=== PATIENT | female | born 1995 | race Caucasian/White ===

== ENCOUNTER 2017-10-20 09:53 | Inpatient (IN) | payer OTHER ==
--- OUTSIDE RECORDS SUMMARY | 2017-10-20 09:56 | XMS REPORT | Summary of Care ---
:1995 Author Organization [facility] Address [address] [place] [address]- Encounter HQ Candicentr_maury(MINOR) [id number] Date(s): 01/11/17 - 01/11/17 [facility] [address] [place] [address]- [phone] Discharge Diagnosis: Hemorrhage in early Discharge Disposition: Home or Self Care Attending Physician: Marti Titus MD Vital Signs Most recent to oldest [Reference Range]: 1 2 Height 152.4 cm (01/11/17 12:42 PM) Temperature Oral [96.4-99.1 DegF] 98.2 DegF 98 DegF (01/11/17 7:23 PM) (01/11/17 12:42 PM) Blood Pressure [90-140/60-90 mmHg] 122/65 mmHg 113/69 mmHg (01/11/17 7:23 PM) (01/11/17 12:42 PM) Respiratory Rate [14-20 BRMIN] 17 BRMIN 16 BRMIN (01/11/17 7:23 PM) (01/11/17 12:42 PM) Peripheral Pulse Rate [60-100 bpm] 76 bpm 81 bpm (01/11/17 7:23 PM) (01/11/17 12:42 PM) Weight 49.091 kg (01/11/17 12:42 PM) Body Mass Index 21.14 m2 (01/11/17 12:42 PM) Problem List No data available for this section Allergies, Adverse Reactions, Alerts Substance Reaction Severity Status NKDA Active Medications No data available for this section Results BLOOD BANK RESULTS Most recent to oldest [Reference Range]: 1 ABO/Rh O POS *Unknown* (01/11/17 2:06 PM) ELECTROLYTES Most recent to oldest [Reference Range]: 1 Sodium Lvl [135-145 mEq/L] 139 mEq/L (01/11/17 2:06 PM) Potassium Lvl [3.5-5.1 mEq/L] 4.0 mEq/L (01/11/17 2:06 PM) Chloride Lvl [95-109 mEq/L] 106 mEq/L (01/11/17 2:06 PM) CO2 [24-32 mEq/L] 27 mEq/L (01/11/17 2:06 PM) AGAP [10.0-20.0 mEq/L] 10.0 mEq/L (01/11/17 2:06 PM) CHEM PANEL Most recent to oldest [Reference Range]: 1 Creatinine Lvl [0.50-1.40 mg/dL] 0.76 mg/dL (01/11/17 2:06 PM) eGFR 113 mL/min/1.73m2 1 *NA* (01/11/17 2:06 PM) BUN [7-22 mg/dL] 13 mg/dL (01/11/17 2:06 PM) B/C Ratio [6-25] 17 (01/11/17 2:06 PM) Glucose Lvl [70-99 mg/dL] 86 mg/dL (01/11/17 2:06 PM) Total Protein [6.4-8.4 g/dL] 8.0 g/dL (01/11/17 2:06 PM) Albumin Lvl [3.5-5.0 g/dL] 4.0 g/dL (01/11/17 2:06 PM) Globulin [2.7-4.2 g/dL] 4.0 g/dL (01/11/17 2:06 PM) A/G Ratio [0.7-1.6] 1.0 (01/11/17 2:06 PM) Calcium Lvl [8.5-10.5 mg/dL] 9.1 mg/dL (01/11/17 2:06 PM) ALT [0-65 unit/L] 23 unit/L (01/11/17 2:06 PM) AST [0-37 unit/L] 12 unit/L (01/11/17 2:06 PM) Alk Phos [39-136 unit/L] 63 unit/L (01/11/17 2:06 PM) Bili Total [0.2-1.3 mg/dL] 0.2 mg/dL (01/11/17 2:06 PM) 1Result Comment: The eGFR is calculated using the CKD-EPI formula. In most young , healthy individualsthe eGFR will be >90 mL/min/1.73m2. The eGFR declines with age. An eGFR of 60-89 may be normal in some populations, particularly the elderly, for whom the CKD-EPI formula has not been extensively validated. Use of the eGFR is not recommended in the following populations: Individuals with unstable creatinine concentrations, including patients and those with serious co-morbid conditions. Patients with extremes in muscle mass or diet. The data above are obtained from the National Kidney Disease Education Program ( NKDEP) which additionally recommends that when the eGFR is used in patients with extremes of body mass index for purposesof drug dosing, the eGFR should be multiplied by the estimated BMI.ENDOCRINOLOGY Most recent to oldest [Reference Range]: 1 S Preg [Negative] Positive *NA* (01/11/17 2:06 PM) hCG Tot 28 mIU/mL *NA* (01/11/17 2:06 PM) URINE CHEM Most recent to oldest [Reference Range]: 1 U Preg [Negative] Negative (01/11/17 2:25 PM) URINE AND STOOL Most recent to oldest [Reference Range]: 1 UA Turbidity [Clear] Slight *ABN* (01/11/17 2:25 PM) UA Color [Yellow] Yellow *NA* (01/11/17 2:25 PM) UA pH [5.0-8.0] 5.0 (01/11/17 2:25 PM) UA Spec Grav [<=1.030] 1.021 (01/11/17 2:25 PM) UA Glucose [Negative mg/dL] Negative mg/dL *NA* (01/11/17 2:25 PM) UA Blood [Negative] Large *ABN* (01/11/17 2:25 PM) UA Ketones [Negative mg/dL] Negative mg/dL *NA* (01/11/17 2:25 PM) UA Protein [Negative mg/dL] Negative mg/dL (01/11/17 2:25 PM) UA Urobilinogen [0.1-1.0 mg/dL] <=1.0 mg/dL *NA* (01/11/17 2:25 PM) UA Bili [Negative] Negative *NA* (01/11/17 2:25 PM) UA Leuk Est [Negative] Negative (01/11/17 2:25 PM) UA Nitrite [Negative] Positive *ABN* (01/11/17 2:25 PM) UA WBC [0-5 /HPF] 3 /HPF (01/11/17 2:25 PM) UA RBC [0-2 /HPF] 28 /HPF *HI* (01/11/17 2:25 PM) UA Sq Epi [Few /LPF] Few /LPF *NA* (01/11/17 2:25 PM) UA Mucus [None Seen /LPF] Few /LPF *NA* (01/11/17 2:25 PM) HEMATOLOGY Most recent to oldest [Reference Range]: 1 WBC [3.7-10.4 K/CMM] 5.2 K/CMM (01/11/17 2:06 PM) RBC [4.20-5.40 M/CMM] 4.62 M/CMM (01/11/17 2:06 PM) Hgb [12.0-16.0 g/dL] 12.7 g/dL (01/11/17 2:06 PM) Hct [36.0-48.0 %] 37.6 % (01/11/17 2:06 PM) MCV [80.0-98.0 fL] 81.3 fL (01/11/17 2:06 PM) MCH [27.0-31.0 pg] 27.5 pg (01/11/17 2:06 PM) MCHC [32.0-36.0 g/dL] 33.9 g/dL (01/11/17 2:06 PM) RDW [11.5-14.5 %] 14.1 % (01/11/17 2:06 PM) Platelet [133-450 K/CMM] 216 K/CMM (01/11/17 2:06 PM) MPV [7.4-10.4 fL] 9.9 fL (01/11/17 2:06 PM) Segs [45.0-75.0 %] 47.9 % (01/11/17 2:06 PM) Lymphocytes [20.0-40.0 %] 37.8 % (01/11/17 2:06 PM) Monocytes [2.0-12.0 %] 8.1 % (01/11/17 2:06 PM) Eosinophils [0.0-4.0 %] 5.4 % *HI* (01/11/17 2:06 PM) Basophils [0.0-1.0 %] 0.8 % (01/11/17 2:06 PM) Segs-Bands # [1.5-8.1 K/CMM] 2.5 K/CMM (01/11/17 2:06 PM) Lymphocytes # [1.0-5.5 K/CMM] 2.0 K/CMM (01/11/17 2:06 PM) Monocytes # [0.0-0.8 K/CMM] 0.4 K/CMM (01/11/17 2:06 PM) Eosinophils # [0.0-0.5 K/CMM] 0.3 K/CMM (01/11/17 2:06 PM) Immunizations No data available for this section Procedures No data available for this section Social History Social History Type Response Smoking Status Never smoker; Ready to change: No; Concerns about tobacco use in household: No; Exposure to Tobacco Smoke None; Cigarette Smoking Last 365 Days No; Reg Smoking Cessation Counseling No Assessment and Plan No data available for this section
--- OUTSIDE RECORDS SUMMARY | 2017-10-20 09:56 | XMS REPORT | Summary of Care ---
:1995 Author Organization [facility] Address [address] [place] [address]- Encounter HQ Candicentr_maury(FIN) [id number] Date(s): 11/15/15 - 11/15/15 [facility] [address] [place] [address]- [phone] Discharge Diagnosis: Abdominal pain Discharge Disposition: Home or Self Care Attending Physician: Ryne Rasmussen DO Vital Signs Most recent to oldest [Reference Range]: 1 2 Height 154.94 cm (11/15/15 4:00 PM) Temperature Oral [96.4-99.1 DegF] 98.3 DegF (11/15/15 4:00 PM) Blood Pressure [90-140/60-90 mmHg] 117/83 mmHg 113/74 mmHg (11/15/15 6:27 PM) (11/15/15 4:00 PM) Respiratory Rate [14-20 BRMIN] 20 BRMIN 20 BRMIN (11/15/15 6:27 PM) (11/15/15 4:00 PM) Peripheral Pulse Rate [60-100 bpm] 62 bpm 66 bpm (11/15/15 6:27 PM) (11/15/15 4:00 PM) Weight 52.273 kg (11/15/15 4:00 PM) Body Mass Index 21.77 m2 (11/15/15 4:00 PM) Problem List No data available for this section Allergies, Adverse Reactions, Alerts Substance Reaction Severity Status NKDA Active Medications dicyclomine 10 mg oral capsule 10 mg=1 cap, PO, QID, PRN abdominal pain, # 28 cap, 0 Refill(s) Start Date: 11/15/15 Status: OrderedSaline Flush 0.9% 10 mL, Route: IVP, Drug Form: INJ, Dosing Weight 52.273, kg, PRN, PRN Line Flush , Start date: 11/15/15 17:01:00 CDT, Duration: 30 day, Stop date: 12/15/15 17:00 :00 CDT Notes: (Same as: BD Posiflush) Start Date: 11/15/15 Stop Date: 11/15/15 Status: Discontinued Results ELECTROLYTES Most recent to oldest [Reference Range]: 1 Sodium Lvl [135-145 mEq/L] 139 mEq/L (11/15/15 5:04 PM) Potassium Lvl [3.5-5.1 mEq/L] 3.6 mEq/L (11/15/15 5:04 PM) Chloride Lvl [95-109 mEq/L] 108 mEq/L (11/15/15 5:04 PM) CO2 [24-32 mEq/L] 25 mEq/L (11/15/15 5:04 PM) AGAP [10.0-20.0 mEq/L] 9.6 mEq/L *LOW* (11/15/15 5:04 PM) CHEM PANEL Most recent to oldest [Reference Range]: 1 Creatinine Lvl [0.50-1.40 mg/dL] 0.77 mg/dL (11/15/15 5:04 PM) eGFR 110 mL/min/1.73m2 1 *NA* (11/15/15 5:04 PM) BUN [7-22 mg/dL] 11 mg/dL (11/15/15 5:04 PM) B/C Ratio [6-25] 14 (11/15/15 5:04 PM) Glucose Lvl [70-99 mg/dL] 92 mg/dL (11/15/15 5:04 PM) Total Protein [6.4-8.4 g/dL] 7.1 g/dL (11/15/15 5:04 PM) Albumin Lvl [3.5-5.0 g/dL] 3.6 g/dL (11/15/15 5:04 PM) Globulin [2.7-4.2 g/dL] 3.5 g/dL (11/15/15 5:04 PM) A/G Ratio [0.7-1.6] 1.0 (11/15/15 5:04 PM) Calcium Lvl [8.5-10.5 mg/dL] 8.5 mg/dL (11/15/15 5:04 PM) Magnesium Lvl [1.8-2.4 mg/dL] 1.9 mg/dL (11/15/15 5:04 PM) ALT [0-65 unit/L] 20 unit/L (11/15/15 5:04 PM) AST [0-37 unit/L] 12 unit/L (11/15/15 5:04 PM) Alk Phos [39-136 unit/L] 68 unit/L (11/15/15 5:04 PM) Bili Total [0.2-1.3 mg/dL] 0.3 mg/dL (11/15/15 5:04 PM) Lipase Lvl [73-393 unit/L] 156 unit/L (11/15/15 5:04 PM) 1Result Comment: The eGFR is calculated [...] oldest [Reference Range]: 1 S Preg [Negative] Negative *NA* (11/15/15 5:04 PM) URINE CHEM Most recent to oldest [Reference Range]: 1 U Preg [Negative] Negative (11/15/15 4:40 PM) URINE AND STOOL Most recent to oldest [Reference Range]: 1 UA Turbidity [Clear] Slight *ABN* (11/15/15 4:40 PM) UA Color [Yellow] Yellow *NA* (11/15/15 4:40 PM) UA pH [5.0-8.0] 5.0 (11/15/15 4:40 PM) UA Spec Grav [<=1.030] 1.024 (11/15/15 4:40 PM) UA Glucose [Negative mg/dL] Negative mg/dL *NA* (11/15/15 4:40 PM) UA Blood [Negative] Large *ABN* (11/15/15 4:40 PM) UA Ketones [Negative mg/dL] Negative mg/dL *NA* (11/15/15 4:40 PM) UA Protein [Negative mg/dL] Negative mg/dL (11/15/15 4:40 PM) UA Urobilinogen [0.1-1.0 mg/dL] <=1.0 mg/dL *NA* (11/15/15 4:40 PM) UA Bili [Negative] Negative *NA* (11/15/15 4:40 PM) UA Leuk Est [Negative] Negative (11/15/15 4:40 PM) UA Nitrite [Negative] Negative (11/15/15 4:40 PM) UA WBC [0-5 /HPF] 4 /HPF (11/15/15 4:40 PM) UA RBC [0-2 /HPF] 2 /HPF (11/15/15 4:40 PM) UA Sq Epi [Few /LPF] Many /LPF *ABN* (11/15/15 4:40 PM) UA Hyal Cast [0-2 /LPF] 1 /LPF (11/15/15 4:40 PM) UA Mucus [None Seen /LPF] Few /LPF *NA* (11/15/15 4:40 PM) HEMATOLOGY Most recent to oldest [Reference Range]: 1 WBC [3.7-10.4 K/CMM] 6.1 K/CMM (11/15/15 5:04 PM) RBC [4.20-5.40 M/CMM] 4.39 M/CMM (11/15/15 5:04 PM) Hgb [12.0-16.0 g/dL] 12.0 g/dL (11/15/15 5:04 PM) Hct [36.0-48.0 %] 35.8 % *LOW* (11/15/15 5:04 PM) MCV [80.0-98.0 fL] 81.6 fL (11/15/15 5:04 PM) MCH [27.0-31.0 pg] 27.4 pg (11/15/15 5:04 PM) MCHC [32.0-36.0 g/dL] 33.6 g/dL (11/15/15 5:04 PM) RDW [11.5-14.5 %] 13.6 % (11/15/15 5:04 PM) Platelet [133-450 K/CMM] 57 K/CMM *LOW* (11/15/15 5:04 PM) MPV [7.4-10.4 fL] 11.8 fL *HI* (11/15/15 5:04 PM) Segs [45.0-75.0 %] 20.0 % *LOW* (11/15/15 5:04 PM) Lymphocytes [20.0-40.0 %] 35.4 % (11/15/15 5:04 PM) Monocytes [2.0-12.0 %] 80.0 % *HI* (11/15/15 5:04 PM) Eosinophils [0.0-4.0 %] 9.8 % *HI* (11/15/15 5:04 PM) Basophils [0.0-1.0 %] 0.7 % (11/15/15 5:04 PM) Segs-Bands # [1.5-8.1 K/CMM] 1.2 K/CMM *LOW* (11/15/15 5:04 PM) Lymphocytes # [1.0-5.5 K/CMM] 2.2 K/CMM (11/15/15 5:04 PM) Monocytes # [0.0-0.8 K/CMM] 4.9 K/CMM *HI* (11/15/15 5:04 PM) Eosinophils # [0.0-0.5 K/CMM] 0.6 K/CMM *HI* (11/15/15 5:04 PM) RBC Morph Normal (11/15/15 5:04 PM) Plt Morph Clumped (11/15/15 5:04 PM) Immunizations No data available for this [...]
[2017-10-20] MEDS ORDERED: CARBOPROST TROME 250 MCG/ML IM PRN (10:13)
[2017-10-20] MEDS ORDERED: METHYLERGONOVINE 0.2MG/ML AMP IM PRN (10:13)
[2017-10-20] MEDS ORDERED: Ringers Lactate 1,000 ML IV PRN (10:13)
[2017-10-20] MEDS ORDERED: BUTORPHANOL 1 MG/ML INJ IV PRN (10:13)
[2017-10-20] MEDS ORDERED: PROMETHAZINE 25 MG/ML VIAL IM PRN ×2 (10:13)
[2017-10-20] MEDS ORDERED: MEPERIDINE HCL 25 MG/0.5 ML IV PRN (10:13)
[2017-10-20] MEDS ORDERED: BUTORPHANOL 1 MG/ML INJ ONE (10:20)
[2017-10-20] MEDS ORDERED: PENICILLIN G POT 5 MU/100 ML BAG IV ONE (10:30)
[2017-10-20] MEDS ORDERED: CARBOPROST TROME 250 MCG/ML IM ONE (10:30)
[2017-10-20] MEDS ORDERED: OXYTOCIN/LR 20 UNIT/1,000 ML BAG IV ONE (10:30)
[2017-10-20] MEDS ORDERED: METHYLERGONOVINE 0.2MG/ML AMP IM ONE (10:30)
[2017-10-20] MEDS ORDERED: LIDOCAINE 2% INJ, 20 mL 20 ML ONE (10:30)
[2017-10-20] MEDS ORDERED: MEPERIDINE HCL 25 MG/0.5 ML ONE (10:30)
[2017-10-20 10:58] VITALS: BMI 27.9
[2017-10-20] MEDS ORDERED: PENICILLIN G POT 5 MU/100 ML VIAL IV SCH (11:00)
[2017-10-20] MEDS ORDERED: Ringers Lactate 1,000 ML IV SCH (11:00)
[2017-10-20] MEDS ORDERED: OXYTOCIN/LR 20 UNIT/1,000 ML BAG IV SCH ×2 (11:00→12:00)
[2017-10-20 11:10] LABS: RPR Titer ND
[2017-10-20 11:13] LABS: Absolute Lymphocytes (CBC) 1.2 K/uL (0.7-4.9); Absolute Monocytes 0.7 K/uL (0.1-1.3); Absolute Neutrophil 6.6 K/uL (1.8-8.0); Basophils % 0.3 % (0-1.3); Eosinophils % 1.3 % (0-4.4); Hematocrit 30.6 % (36.0-45.0); Lymphocytes % 13.5 % (15.3-44.8); MCV 78.6 fL (80-100); MPV 10.8 fL (7.6-11.3); RBC Red Blood Cell Count 3.89 M/uL (3.86-4.86)
[2017-10-20 11:24] LABS: Glucose Level 85 mg/dL (74-106)
[2017-10-20] MEDS ORDERED: DOCUSATE NA/SENNA CONC 1 TAB PO PRN (11:40)
[2017-10-20] MEDS ORDERED: DIPHENHYDRAMINE 25 MG TAB/CAP PO PRN (11:40)
[2017-10-20] MEDS ORDERED: ACETAMINOPHEN 500 MG TAB PO PRN (11:40)
[2017-10-20] MEDS ORDERED: Oxycodone HCl/Acetaminophen 1 TAB TAB PO PRN ×2 (11:40)
[2017-10-20] MEDS ORDERED: BISACODYL 10 MG RECTAL SUPP RECT PRN (11:40)
[2017-10-20] MEDS ORDERED: IBUPROFEN 200 MG TAB PO PRN (11:40)
--- NOTE | 2017-10-20 16:26 | PN ---
The patient is now 8.5 cm, 90% effaced, vertex, 0 station. Rupture of membranes, clear fluid. Penic illin is already in. Baby looks good on the monitor. We are in the active phase at this point. AMOL/ALICIA Voice ID: [id number] Report ID: [id number]
--- NOTE | 2017-10-20 16:26 | PREOPHP ---
Date of Admission: 10/20/2017 History Of Present Illness: A 22-year-old, drop-in patient from [place], [place], 2, para 1, fir st uncomplicated. Baby is now 2 years old. The patient states that she has not seen anybo dy during the because she was trying to get insurance. Apparently has had it for several m onths, but did not know about it. In any event, she has family in this area. Dropped in earlier the last night and was sent home. Not thought to be in active labor. Returns and is in active labor, 5 cm on admission. She is rapidly progressing too now 8 cm, 100% effaced, -1 to 0 station. Membranes bulging. She has been given 1 dose of Stadol at her request. Strep status is unknown. The patient requested penicillin, which is now just about completed. Family History: Noncontributory. Allergies: SHE HAS NO ALLERGIES. Physical Examination: Basically normal. Vital Signs: All stable. Pelvic: As stated. The patient progressing very rapidly and anticipate delivery soon. Full admission talk given. We wi ll draw the drop-in labs. After delivery of course, we will offer her Tdap, which she has not had an d discussed this with the family members how they should be immunized as well. AMOL/ALICIA Voice ID: [id number]
--- NOTE | 2017-10-20 19:39 | OP ---
Surgeon: Reg Javier MD This is a 22-year-old, 2, para 1, no care, estimated to be around 39 weeks, came in from [place], [place]. 5 cm on admission. went rapidly to complete. Stadol IV 1 mg in first stage of l abor. Penicillin prophylaxis 5 million units 1 time. Second stage approximately 10 minutes or less. Spontaneous vaginal delivery of an estimated 6 pounds female. Apgars 9 and 9 or 9 and 10. Two smal l first-degree lacerations involving each labia minora, both sutured with 2-0 chromic after local inf iltration. Schultze delivery of the placenta, which was inspected and noted be intact and normal. L ess than 300 cc blood loss. The patient tolerated all procedures well. Drop-in lab has been ordered . Final Diagnoses: Term intrauterine . No care. Spontaneous vaginal delivery. Labs are pending. Tdap has also been discussed with the patient and . AMOL/ALICIA Voice ID: [id number] Report ID: [id number]
[2017-10-20 21:14] LABS: RPR (Rapid Plasma Reagin) NON-REACT (NON-REACT)
[2017-10-21] MEDS ORDERED: Tdap (Diph,Pertuss(Acell),Tet Vac) 0.5 ML SYR IMVAC ONE (11:20)
[2017-10-21 11:38] VITALS: BP 112/54; TEMP 97.4
[2017-10-23 03:21] LABS: HBsAG Nonreactive (Nonreactive)
== END 2017-10-21 13:40 | disposition home or self-care (01) | DRG 775 ==
LOC: L&D 09:53 → 2ND-WC 10:07
PROVIDERS: ADMIT Specialist; ATTEND Specialist
PROC: 10E0XZZ Delivery of Products of Conception, External Approach (ICD-10-PCS; principal; 2017-10-20)
PROC: 0HQ9XZZ Repair Perineum Skin, External Approach (ICD-10-PCS; 2017-10-20)
PROC: 10907ZC Drainage of Amniotic Fluid, Therapeutic from Products of Conception, Via Natural or Artificial Opening (ICD-10-PCS; 2017-10-20)
DX: O70.0 First degree perineal laceration during delivery (principal); Z3A.39 39 weeks gestation of pregnancy; Z37.0 Single live birth; Z23 Encounter for immunization
CPT/HCPCS: 36415; 82947; 85025; 86592; 86762; 86900; 86901; 87340; 90715; 99218; G0433; J0595; J2175; J2210; J2590

== ENCOUNTER 2022-04-01 10:13 | Emergency (ER) | payer SELFPAY ==
--- OUTSIDE RECORDS SUMMARY | 2022-04-01 10:18 | XMS REPORT | Continuity of Care Document ---
:[address] [facility] t Address [address] [place] [address] Care Team Providers Name Role Phone Pcp, Patient Does Not Have A Primary Care Physician +[id number] Silas Mehta RN Attending Clinician Unavailable UNKNOWN, ATTENDING Attending Clinician Unavailable [place] Rodriguez MD Attending Clinician [place] RODRIGUEZ Attending Clinician Unavailable Doctor Unassigned, [place] Attending Clinician Unavailable DR ANAIS WILSON Attending Clinician Unavailable DR DAVID LLOYD Attending Clinician Unavailable DR FAIZAN HUERTA Attending Clinician Unavailable DR ANAIS WILSON Admitting Clinician Unavailable DR DAVID LLOYD Admitting Clinician Unavailable DR FAIZAN HUERTA Admitting Clinician Unavailable Problems Condition Condition Condition Status Onset Resolution Last Treating Co mments Source Name Details Category Date Date Treatment Clinician Date No known No known Disease Unive rs active active ity of problems problems [facility] Allergies, Adverse Reactions, Alerts Allergy Allergy Status Severity Reaction(s) Onset Inactive Treating Comm ents Source Name Type Date Date Clinician NO KNOWN Drug Active Univers ALLERGIE Class ity of S [facility] No Known DA Active [facility] Allerg Medical [facility] [place] Social History Social Habit Start Date Stop Date Quantity Comments Source Exposure to 2021-12-23 2022-01-02 Not sure [facility]-CoV-2 00:00:00 09:20:00 [facility] (event) [place] Tobacco use and 2019-06-27 2019-06-27 Smokeless tobacco Un iversity of exposure 00:00:00 00:00:00 non-user [facility] Sex Ass[birth year] Universit y of 00:00:00 00:00:00 [facility] Smoking Status Start Date Stop Date Source Tobacco [facility] consumption [facility] Branch Never smoked tobacco [facility] Medications Ordered Filled Start Stop Current Ordering Indication Dosage Frequency Signature Comments Components Source Medication Medication Date Date Medication? Clinician (SIG) Name Name No known 2021-04 No No known Unive rs medications 0-04 medication it y of 09:44: s [place] [facility] Branch bromphenira 2021-04 Yes [id number] 5mL Take 5 mL Univers mine-pseudo 0-04 by mouth 4 it y of ephedrine-D 00:00: ([place] (BROMF[place] 00 times Medical DM) 2-30-10 daily as Bran ch mg/5 mL needed for syrup Congestion /Allergies . benzonatate 2021-04 Yes [id number] 200mg Take 2 Univers 100 mg 0-04 capsules ity of capsule 00:00: by mouth [place] 00 every 8 Medical (eight) Branch hours as needed for Cough. bromphenira 2021-04 Yes [id number] 5mL Take 5 mL Univers mine-pseudo 0-04 by mouth 4 it y of ephedrine-D 00:00: ([place] (BROMF[place] 00 times Medical DM) 2-30-10 daily as Bran ch mg/5 mL needed for syrup Congestion /Allergies . benzonatate 2021-04 Yes [id number] 200mg Take 2 Univers 100 mg 0-04 capsules ity of capsule 00:00: by mouth [place] 00 every 8 Medical (eight) Branch hours as needed for Cough. bromphenira 2021-04 Yes [id number] 5mL Take 5 mL Univers mine-pseudo 0-04 by mouth 4 it y of ephedrine-D 00:00: ([place] (BROMF[place] 00 times Medical DM) 2-30-10 daily as Bran ch mg/5 mL needed for syrup Congestion /Allergies . benzonatate 2021-04 Yes [id number] 200mg Take 2 Univers 100 mg 0-04 capsules ity of capsule 00:00: by mouth [place] 00 every 8 Medical (eight) Branch hours as needed for Cough. No known No No known Unive rs medications 3-28 medication it y of 16:04: s [address] Vital Signs Vital Name Observation Time Observation Value Comments Source Systolic blood 2022-01-02 14:25:00 126 mm[Hg] Univer sity of pressure [facility] Diastolic blood 2022-01-02 14:25:00 70 mm[Hg] Unive rsity of [facility] Heart rate 2022-01-02 14:25:00 73 /min [facility] Body temperature 2022-01-02 14:25:00 36.89 [facility] Respiratory rate 2022-01-02 14:25:00 18 /min [facility] Body height 2022-01-02 14:25:00 152.4 cm [facility] Body weight 2022-01-02 14:25:00 52.889 kg [facility] BMI 2022-01-02 14:25:00 22.77 kg/m2 [facility] Oxygen saturation in 2022-01-02 14:25:00 98 /min [facility] Arterial blood by [facility] Pulse oximetry [place] Height 2019-04-27 21:30:00 154.94 CM Weight 2019-04-27 21:30:00 45.35 KG Procedures Procedure Date / Time Performing Clinician Source Performed CONSENT/REFUSAL FOR 2022-01-02 14:19:18 Doctor Unassigned, [facility] DIAGNOSIS AND TREATMENT [place] [facility] PATIENT FINANCIAL Doctor Unassigned, [facility] RESPONSIBILITY - ALL [place] [facility] FORMS Encounters Start End Encounter Admission Attending Care Care Encounter Source Date/Time Date/Time Type Type Clinicians Facility Department ID 2022-04-01 2022-04-01 Nurse PREMA Mehta [id number] Univers 00:00:00 00:00:00 Triage Silas LEO [id number] [facility] [id number] Nabil as [id number] [place] [id number] Branch 2022-01-04 2022-01-04 Outpatient R DENNISE [facility] [id number] Univers 09:40:00 09:40:00 ATTENDING saba [facility] 2022-01-04 2022-01-04 Mauri Rodriguez IDBRIGHT [id number] Univers 00:00:00 00:00:00 (Out) [place] [facility] [id number] it y [place] 4.2.7.2.686 Nabil as ANJELICA?BLEA [id number] [address] MEDICAL OFFICE [facility] 2022-01-02 2022-01-02 [facility] [id number] Univers 09:20:00 09:40:00 Care [place] [facility] [id number] it y [place] 4.2.7.2.686 Nabil as ANJELICA?BLEA [id number] [address] MEDICAL OFFICE [facility] 2022-01-02 2022-01-02 [facility] [id number] Univers 09:20:00 09:20:00 [place] ity [facility] 2022-01-02 2022-01-02 Orders Doctor PREMA [id number] Univers 00:00:00 00:00:00 Only Unassigned, AHMET 350.1.13.10 ity of [place] [facility] 4.2.7.2.686 Nabil as [id number] [address] 2019-06-27 2019-06-27 Outpatient R DENNISE [facility] [id number] Univers 16:00:00 16:00:00 ATTENDING ity of [facility] 2019-04-27 2019-04-27 Outpatient E ANAIS WILSON [facility] [id number] [place] 21:08:00 22:25:00 Medica l [place] 2019-02-05 2019-02-05 Outpatient E GABINO [facility] [id number] [place] 09:14:00 12:23:00 DAVID Medica [facility] [place] 2019-02-02 2019-02-02 Outpatient E GABINO [facility] [id number] [place] 12:20:00 15:05:00 DAVID Medica [facility] [place] 2018-11-20 2018-11-20 Outpatient E SHEIKH [facility] [id number] [place] 08:26:00 09:40:00 WASIM Medica l [place] 2018-07-16 2018-07-16 Outpatient E ANAIS WILSON [facility] [id number] [place] 08:57:00 09:20:[address] [facility] Orders Doctor PREMA [id number] Univers 00:00:00 00:00:00 Only Unassigned, AHMET 350.1.13.10 ity [facility] [place] [facility] [id number] Nabil as [id number] [facility] 009 Branch Results Test Description Test Time Test Comments Results Result Comments Source TROPONIN I OW 2019-04-27 22:06:00 Test Item Value Reference Range Interpretation Comme nts TROPONIN I (test code = A84) <0.050 ng/mL 0.000-0.050 D-DIMER TRIAGE OW2019-04-27 21:59:00 Test Item Value Reference Range Interpretation Comments D-DIMER (test code = 101 ng/mL D-DU <=599 GDDI) D-DIMER COMMENT (test *Level to rule out code = DDCOM) DVT or PE: <235 ng/mL D-DU* [employer] 8 Panel *OW* [id number] 21:58:00 Test Item Value Reference Range Interpretation Comments GLUCOSE (test code = GGUL) 120 mg/dL 73-118 H BUN (test code = GBUN) 10 mg/dL 7-22 CREATININE (test code = GCRE) 0.6 mg/dL 0.6-1.2 CK TOTAL (test code = GCK) 62 U/L 30-190 SODIUM (test code = GNA+) 137 mmol/L 128-145 POTASSIUM (test code = GK+) 3.4 mmol/L 3.6-5.1 L CHLORIDE (test code = GCL-) 103 mmol/L 98-108 TCO2 (test code = GTC02) 22 mmol/L 18-33 CBC (INCLUDES AUTOMATED DIFFERENTIAL) *2019-04-27 21:50:00 Test Item Value Reference Range Interpretation Comments WBC (test code = WBC) 7.5 10\S\3/uL 4.5-11.0 RBC (test code = RBC) 4.51 10\S\6/uL 4.30-5.70 HGB (test code = HBG) 12.0 g/dL 12.0-15.5 HCT (test code = HCT) 38.0 % 35.0-44.0 MCV (test code = MCV) 84.3 fL 81.0-99.0 MCH (test code = MCH) 26.6 pg 27.0-31.0 L MCHC (test code = MCHC) 31.6 g/dL 32.0-36.0 L RDW (test code = RDW) 14.7 % 11.5-14.5 H PLT (test code = PLT) 226 10\S\3/uL 130-400 MPV (test code = OMPV) 9.5 fL 6.2-10.2 NEUTROP # (test code = NE#) 4.2 10\S\3/uL 1.6-8.0 LYMPH # (test code = LY#) 2.7 10\S\3/uL 1.1-3.5 MID # (test code = GMID#) 0.6 10\S\3/uL 0.0-1.1 GRA % (test code = GRA%) 56.1 % 35.0-73.0 LYMPH % (test code = GLY%) 36.2 % 20.0-55.0 MID % (test code = GMID%) 7.7 % 0.0-10.0 BETA HCG QUANTITATIVE [id number] 12:04:00 Test Item Value Reference Range Interpretation Comments BHCG QUANT (test 310.00 mIU/mL code = A17) BHCGQ (test code = QUANTITATIVE BHCG BHCQ) RESULT INTERPRETATION --- APPROXIMATE APPROXIMATE GESTATIONAL AGE HCG RANGE (WEEKS) (mIU/mL) - 0.2 - 1 5 - 50 1 - 2 50 - 500 2 - 3 100 - 5,000 3 - 4 500 - 10,000 4 - 5 1,000 - 50,000 5 - 6 10,000 - 100,000 6 - 8 15,000 - 200,000 8 - 12 10,000 - 100,000 --- U/S ENDOVAGINAL *OW*2019-02-05 11:02:47PELVIC ULTRASOUNDLocation code: [id number] HISTORY: Bleeding from vaginaComparison: 02/02/19TECHNIQUE: Transabdominal and endovaginal sonography of the pelvis was performed.FINDINGS: The uterus measures 7.6 x 3.7 x 5.6 cm. There is no visualized intrauterinegestational sac. Endometrium measures 9 mm. The cervical os is closed.The right ovary measures 3.1 x 1.2 x 1.6 cm. The left ovary measures 3.9 x1.5 x 2.0 cm. Color flow is normal bilaterally. There is no adnexal mass orfluid collection.IMPRESSION:1. Previously suspected intrauterine gestational sac is not visualized ontoday's exam. Findings are suggestive of interval spontaneous .2. No adnexal mass or fluid collection. Recommend correlat ion with beta-hCG andfollow-up ultrasound in 3-5 days, if clinically indicated. U/S <14 WEEKS *OW*2019-02-05 11:02:47PELVIC ULTRASOUNDLocation code: [id number] HISTORY: Bleeding from vaginaComparison: 02/02/19TECHNIQUE: Transabdominal and endovaginal sonography of the pelvis was performed.FINDINGS: The uterus measures 7.6 x 3.7 x 5.6 cm. There is no visualized intrauterinegestational sac. Endometrium measures 9 mm. The cervical os is closed.The right ovary measures 3.1 x 1.2 x 1.6 cm. The left ovary measures 3.9 x1.5 x 2.0 cm. Color flow is normal bilaterally. There is no adnexal mass orfluid collection.IMPRESSION:1. Previously suspected intrauterine gestational sac is not visualized ontoday's exam. Findings are suggestive of interval spontaneous .2. No adnexal mass or fluid collection. Recommend correlat ion with beta-hCG andfollow-up ultrasound in 3-5 days, if clinically indicated. URINE OW2019-02-05 10:18:00 Test Item Value Reference Range Interpretation Comments PREG UR (test code = PGU) Positive NEGATIVE BETA HCG QUANTITATIVE [id number] 16:02:00 Test Item Value Reference Range Interpretation Comments BHCG QUANT (test 1113.00 mIU/mL code = A17) BHCGQ (test code = QUANTITATIVE BHCG BHCQ) RESULT INTERPRETATION --- APPROXIMATE APPROXIMATE GESTATIONAL AGE HCG RANGE (WEEKS) (mIU/mL) - 0.2 - 1 5 - 50 1 - 2 50 - 500 2 - 3 100 - 5,000 3 - 4 500 - 10,000 4 - 5 1,000 - 50,000 5 - 6 10,000 - 100,000 6 - 8 15,000 - 200,000 8 - 12 10,000 - 100,000 --- URINALYSIS W/O MICROSCOPICOW2019-02-02 14:11:00 Test Item Value Reference Range Interpretation Comments COLOR (test code = Yellow YELLOW COLU) CLARITY (test code = Clear CLEAR CLA) GLUCOSE UR (test Negative NEGATIVE code = UA GLUCOSE) BILI UR (test code = Negative NEGATIVE BILE) KETONES UR (test Negative NEGATIVE code = RICH) SP GRAVITY (test 1.015 1.005-1.030 code = SPGR) PH UR (test code = 7.0 4.5-8.0 PH) PROTEIN UR (test Negative NEGATIVE code = PU) NITRITE UR (test Negative NEGATIVE code = NITRITE) UROBIL UR (test code 0.2 E.U./dL = GUROQ) UROBIL UR (test code UROBILINOGEN = GUROQC) REFERENCE RANGE 0.2 - 1.0 EU/dL BLOOD UR (test code 3+ NEGATIVE A = UA BLOOD) LEUK ES UR (test Negative NEGATIVE code = LEUK) U/S >14 WEEKS *OW*2019-02-02 13:32:54PELVIC AND TRANSVAGINAL ULTRASOUNDLocation code: [id number] HISTORY:, bleedingTECHNIQUE: Mult iple high resolution images were obtained through the pelvis using amultifrequency curved transducerfollowed by a transvaginal probe.FINDINGS: The uterus measures 7.6 x 4.1 x 5.5 cm. There is a small cystic area in theuterus which could represent early gestational sac measuring 3 x 4 x 4 mm whichis too early for calculation of gestational age. No pole or yolk sac.Small subchorionic hemorrhage is noted bilaterally.The right ovary measures 3.4 x 2.0 x 1.8 cm. The left ovary measures 4.1 x1.6 x 1.8 cm. Color flow is normal bilaterally. There is no adnexal mass orfluid collection.IMPRESSION:Small possible gestational sac without yolk sac or pole along with smallsubchorionic hemorrhages. Follow-up hCG and ultrasound recommended. No adnexalmasses.
[2022-04-01] MEDS ORDERED: ONDANSETRON 4 MG/2 ML VIAL ONE ×2 (10:55→13:45)
[2022-04-01] MEDS ORDERED: MORPHINE 4 MG/ML SYR ONE ×2 (10:55→12:34)
[2022-04-01 11:15] LABS: Absolute Lymphocytes (CBC) 1.7 K/uL (0.7-4.9); Lymphocytes % 19.6 % (15.3-44.8); MCV 82.1 fL (80-100); MPV 9.9 fL (7.6-11.3); RBC Red Blood Cell Count 4.76 M/uL (3.86-4.86)
[2022-04-01 11:36] LABS: Bilirubin Total 0.5 mg/dL (0.2-1.0); Potassium 3.6 mmol/L (3.5-5.1); Protein, Total 7.6 g/dL (6.4-8.2)
[2022-04-01 11:48] LABS: Urine Blood 2+ (Negative); Urine Glucose Negative (Negative); Urine Protein Negative (Negative); Urine Specific Gravity 1.015 (1.005-1.030); Urine pH 7.5 (5.0-7.0)
--- NOTE | 2022-04-01 13:30 | RAD REPORT ---
EXAM DESCRIPTION: US - Transvaginal Study Probe - 04/01/2022 12:05 pm CLINICAL HISTORY: RLQ PAIN COMPARISON: <Comparisons> TECHNIQUE: Endovaginal sonography was performed. FINDINGS: Gestational sac with pole is present filling and dilating the cervical canal. pole measures 7 weeks 6 days size but there is no cardiac activity identifiable. Endometrium in the f undal and midportion of the cervical canal is thickened up to 2.5 cm. No intrauterine hematoma. No my ometrial mass. Uterus is 10.1 x 4.7 x 5.4 cm. No blood or fluid in the cul de sac. Normal size right ovary is seen with normal stromal blood flow pattern. No right adnexal mass. Left ovary could not be clearly identified, likely obscured by bowel. No left adnexal mass. IMPRESSION: 7 week 6 day size pole with no cardiac activity identifiable. The gestational sac is in the cervical canal.
--- NOTE | 2022-04-01 14:28 | RAD REPORT ---
EXAM DESCRIPTION: CT - Abdomen Pelvis W Contrast - 04/01/2022 1:54 pm CLINICAL HISTORY: RLQ abdominal pain COMPARISON: Transvaginal Study Probe dated 04/01/2022 TECHNIQUE: Biphasic, helical CT imaging of the abdomen and pelvis was performed following 100 ml non -ionic IV contrast. Imaging was performed subsequent to the endovaginal ultrasound of the same date. Oral contrast: No. All CT scans are performed using dose optimization technique as appropriate and may include automated exposure control or mA/KV adjustment according to patient size. FINDINGS: No suspicious findings in the lung bases. The liver, spleen, and pancreas show no suspicious findings. Gallbladder and biliary tree are also wi thout suspicious finding. Symmetric renal function is seen with no hydronephrosis or suspicious renal mass. No pyelonephritis o r acute parenchymal process. Mostly contracted urinary bladder shows no suspicious finding. No adrena l abnormalities. Uterine size is normal. Fundal portion of the endometrial cavity is thickened. Cervical canal is dila callie by fluid or low-density material. This was shown on the earlier ultrasound to be a gestational sa c containing a non viable 7 week 6 day sized pole. The external os is dilated. There is additio nal fluid and/or blood in the deep portion of the vaginal vault. Both ovaries are identified and unre markable. No adnexal suspicious findings. No gastric or small bowel abnormality. Moderate stool volume is seen throughout the colon. Stool volu me is prominent in the proximal and midportion of the rectum. No wall thickening or mass. No free air or pneumatosis. No abnormal free fluid collections otherwise noted. No hernia, mass or b ulky lymphadenopathy. No suspicious bony findings. IMPRESSION: Cervical canal is dilated with open external loss and contains a gestational sac with no nviable 7 week 6 day pole as was demonstrated on the earlier ultrasound examination. Moderate stool volume distends but does not dilate the colon from distal sigmoid colon to the mid rec trace. No ovarian or adnexal abnormality. No acute finding.
--- NOTE | 2022-04-01 15:06 | EDPHYS ---
Physician Documentation [facility] Name: Katrin Mccauley Age: 26 yrs Sex: Female : 1995 Arrival Date: 04/01/2022 Time: 10:17 Bed 11 Private MD: ED Physician Eliazar Menard HPI: 04/01 12:07 This 26 yrs old Female presents to ER via Ambulatory with complaints of Abdominal Pain, en Back Pain, Rectal Pain. 12:07 26 yo F [id number] presents to ED with sudden onset of RLQ pain last night radiating to en right flank and right perirectal area. Pt reports irregular menstrual cycles. She is on control but has had multiple spontaneous abortions on control. She is concerned about possible miscarriage. +nausea, no V/D, dysuria, hematuria. 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 - Social history:: Smoking status: Patient/guardian denies using tobacco, the patient reports quitting approximately 5 years ago. ROS: 12:07 Constitutional: Negative for fever, chills, and weight loss. en 12:07 : Positive for pelvic pain, vaginal bleeding. 12:07 All other systems are negative. Exam: 12:07 Constitutional: Crying in pain, cooperative, HDS, nontoxic appearing Cardiovascular: en Regular rate and rhythm with a normal S1 and S2. No gallops, murmurs, or rubs. Normal PMI, no JVD. No pulse deficits. Respiratory: Lungs have equal breath sounds bilaterally, clear to auscultation and percussion. No rales, rhonchi or wheezes noted. No increased work of breathing, no retractions or nasal flaring. Abdomen/GI: S/ND/NABS RLQ TTP in lower pelvis and McBurneys point with guarding. No CVA TTP Vital Signs: 10:41 BP 125 / 79; Pulse 66; Resp 28; Temp 99.1(TE); Pulse Ox 98% on R/A; Weight 52.16 kg; kr3 Height 5 ft. 0 in. (152.40 cm); Pain 9/10; 14:30 BP 100 / 60; Pulse 60; Resp 18; Pulse Ox 96% ; kb3 15:15 BP 98 / 64; Pulse 61; Resp 18; Pulse Ox 100% ; kb3 10:41 Body Mass Index 22.46 (52.16 kg, 152.40 cm) kr3 MDM: 10:25 Patient medically screened. rn 12:07 Differential diagnosis: appendicitis, bowel obstruction, diverticulitis, Dysmenorrhea, en Ectopic , Irritable bowel syndrome, Menorrhagia, Mesenteric ischemia or infarction, non-specific abd pain, Ovarian Torsion, Perf. Duodenal Ulcer, Peritonitis, Pelvic Inflammatory Disease, Pyelonephritis, Tubal Ovarian Abcess, Ureterolithiasis, urinary tract infection, , miscarriage. Data reviewed: vital signs, nurses notes, lab test result(s), urinalysis, negative, UPT: negative PT UPT negative, but US tech sees sac in cervix. Will get Quant HCG and RH. , and as a result, I will pain returning. Will give more medications. 13:36 ED course: Pt with BHCG of 4. Pelvic US with nonviable 7w gestational sac and fetus en without cardiac activity. Pt with TTP at McBurney's point but pain improved after IV Morphine. Still with concern for appendicitis, so will get CT A/P now that confirmed is not viable. . 14:57 ED course: CT reviewed. Normal appendix. Nonviable in cervix c/w missed en . Will consult Ob, Dr Gutierrez, OB relationship associate. 15:02 ED course: spoke with Dr Gutierrez, Ob relationship associate. Ok to d/c pt at this time. HDS and no large en volume bleeding. Will need OB f/u and recommended Dr Javier since Dr Gutierrez is not local. No medical intervention required at this time. ER return warnings reviewed. . 04/01 10:43 Order name: CBC with Diff; Complete Time: 11:31 en 04/01 10:43 Order name: CMP; Complete Time: 12:00 en 04/01 11:48 Order name: Urine Dipstick-Ancillary; Complete Time: 12:00 EDMS 04/01 12:01 Order name: Rh Type en 04/01 12:01 Order name: Quantitative Hcg; Complete Time: 13:31 en 04/01 12:26 Order name: Rh Typing; Complete Time: 13:31 EDMS 04/01 10:43 Order name: Urine Dipstick-Ancillary (obtain specimen); Complete Time: 11:52 en 04/01 10:43 Order name: CT Abd/Pelvis - IV Contrast Only; Complete Time: 14:56 en 04/01 12:07 Order name: Transvaginal Study Probe; Complete Time: 14:13 [facility] 04/01 10:43 Order name: Urine Test (obtain specimen); Complete Time: 11:52 en 04/01 10:43 Order name: NPO; Complete Time: 11:08 en Administered Medications: 11:03 Drug: Zofran (Ondansetron) 4 mg Route: IVP; Site: left antecubital; ss 11:32 Follow up: Response: No adverse reaction ss 11:08 Drug: morphine 4 mg Route: IVP; Infused Over: 4 mins; Site: left antecubital; ss 11:32 Follow up: Response: No adverse reaction; Pain is decreased ss 12:33 Drug: morphine 4 mg Route: IVP; Infused Over: 4 mins; Site: left antecubital; kb3 13:30 Follow up: Response: No adverse reaction; Pain is decreased kb3 13:00 Drug: Zofran (Ondansetron) 4 mg Route: IVP; Site: left antecubital; kb3 14:00 Follow up: Response: No adverse reaction; Nausea is decreased kb3 Disposition: 15:51 Co-signature as Attending Physician, Eliazar Menard MD. rn Disposition Summary: 04/01/22 15:05 Discharge Ordered Location: Home en Problem: new en Symptoms: are unchanged en Condition: Stable en Diagnosis - Missed en Followup: en - With: Reg Javier MD - When: 2 - 3 days - Reason: Recheck today's complaints Discharge Instructions: - Discharge Summary Sheet en - Miscarriage, [id number] en Forms: - Medication Reconciliation Form en - Thank You Letter en - Antibiotic Education en - Prescription Opioid Use en - Work release form kb3 Prescriptions: - Ibuprofen 800 mg Oral Tablet - take 1 tablet by ORAL route every 12 hours As needed take with food; 20 tablet; en Refills: 0, Product Selection Permitted Signatures: Dispatcher [employer] [facility] Eliazar Menard MD MD rn Smirch, Shelby, RN RN ss GloBirdie schmidt PA PA en Reid, Kelley RN RN kr3 April Amador RN RN kb3 Corrections: (The following items were deleted from the chart) 12:07 10:43 Pelvis Complete+US.RAD.BRZ ordered. EDMS EDMS
--- NOTE | 2022-04-01 15:06 | ER ---
Nurse's Notes [facility] Name: Katrin Mccauley Age: 26 yrs Sex: Female : 1995 Arrival Date: 04/01/2022 Time: 10:17 Bed 11 Private MD: Diagnosis: Missed Presentation: 04/01 10:41 Chief complaint: Patient states: lower right ABD pain, lower right back pain and kr3 pressure around the rectum. patient states 'this started last night and I thought it was menstrual cramps". I woke up a few times from pain, and this morning when I woke up the pain has intensified and is unbearable. Coronavirus screen: Vaccine status: Patient reports being unvaccinated. Client denies travel out of the [place] in the last 14 days. Ebola Screen: Patient denies travel to an Ebola-affected area in the 21 days before illness onset. Initial Sepsis Screen: Does the patient meet any 2 criteria? No. Patient's initial sepsis screen is negative. Does the patient have a suspected source of infection? No. Patient's initial sepsis screen is negative. Risk Assessment: Do you want to hurt yourself or someone else? Patient reports no desire to harm self or others. Onset of symptoms was March 31, 2022. 10:41 Method Of Arrival: Ambulatory kr3 10:41 Acuity: PENELOPE 3 kr3 Triage Assessment: 10:47 General: Appears distressed, uncomfortable, Behavior is cooperative, appropriate for kr3 age, crying. Pain: Complains of pain in abdomen and pelvis. 12:00 GI: Abdomen is flat, Bowel sounds present X 4 quads. Abd is soft Abdomen is tender to kb3 palpation in right lower quadrant Guarding noted in right lower quadrant Reports lower abdominal pain. : Reports cramping, pain in right in suprapubic area lower quadrant(s). 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 - Social history:: Smoking status: Patient/guardian denies using tobacco, the patient reports quitting approximately 5 years ago. Screenin:08 [facility] ED Fall Risk Assessment (Adult) History of falling in the last 3 months, ss including since admission No falls in past 3 months (0 pts). Abuse screen: Denies threats or abuse. Denies injuries from another. Nutritional screening: No deficits noted. Tuberculosis screening: Never had TB. Assessment: 11:08 General: Appears distressed, uncomfortable, Behavior is calm, cooperative, Denies ss fever. Pain: Complains of pain in posterior aspect of right lateral abdomen and right lower quadrant Pain currently is 9 out of 10 on a pain scale. Quality of pain is described as sharp, Pain began last night, much worse today Is continuous. Neuro: Level of Consciousness is awake, alert, obeys commands, Oriented to person, place, time, situation. Cardiovascular: Capillary refill < 3 seconds is brisk in bilateral fingers. Respiratory: Airway is patent Respiratory effort is even, unlabored, Respiratory pattern is regular, symmetrical. : No signs and/or symptoms were reported regarding the genitourinary system. Derm: Skin is intact, is healthy with good turgor, Skin is pink, warm \\T\\ dry. normal. Musculoskeletal: Circulation, motion, and sensation intact. Range of motion: intact in all extremities, Swelling absent. 11:33 Reassessment: Pt ambulated to restroom with steady gait. Pt reports that the pain ss medication has helped her pain significantly. 12:00 Reassessment: Patient appears in no apparent distress at this time. Patient and/or kb3 family updated on plan of care and expected duration. Pain level reassessed. 12:00 General: Pt reports pain has decreased with pain medication. kb3 14:30 Reassessment: Patient appears in no apparent distress at this time. Patient and/or kb3 family updated on plan of care and expected duration. Pain level reassessed. General: Pt resting comfortably. Reports pain has resolved and nausea has improved. Vital Signs: 10:41 BP 125 / 79; Pulse 66; Resp 28; Temp 99.1(TE); Pulse Ox 98% on R/A; Weight 52.16 kg; kr3 Height 5 ft. 0 in. (152.40 cm); Pain 9/10; 14:30 BP 100 / 60; Pulse 60; Resp 18; Pulse Ox 96% ; kb3 15:15 BP 98 / 64; Pulse 61; Resp 18; Pulse Ox 100% ; kb3 10:41 Body Mass Index 22.46 (52.16 kg, 152.40 cm) kr3 ED Course: 10:17 Patient arrived in ED. rg4 10:24 Eliazar Menard MD is Attending Physician. rn 10:34 Birdie Cody PA is PHCP. en 10:34 Eliazar Menard MD is Attending Physician. en 10:46 Triage completed. kr3 10:47 Patient placed in an exam room, on a stretcher. kr3 11:07 Sandy Oden, TRISTEN is Primary Nurse. ss 11:08 Patient has correct armband on for positive identification. Bed in low position. ss 11:08 CMP Sent. ss 11:08 CBC with Diff Sent. ss 11:08 Inserted saline lock: 20 gauge in left antecubital area, using aseptic technique. Blood ss collected. 11:33 No provider procedures requiring assistance completed. Patient did not have IV access ss during this emergency room visit. 12:07 Transvaginal Study Probe In Process Unspecified. EDMS 12:19 Quantitative Hcg Sent. kb3 12:19 Rh Type Sent. kb3 13:[address] kb3 13:56 CT Abd/Pelvis - IV Contrast Only In Process Unspecified. EDMS 15:05 Reg Javier MD is Referral Physician. en Administered Medications: 11:03 Drug: Zofran (Ondansetron) 4 mg Route: IVP; Site: left antecubital; ss 11:32 Follow up: Response: No adverse reaction ss 11:08 Drug: morphine 4 mg Route: IVP; Infused Over: 4 mins; Site: left antecubital; ss 11:32 Follow up: Response: No adverse reaction; Pain is decreased ss 12:33 Drug: morphine 4 mg Route: IVP; Infused Over: 4 mins; Site: left antecubital; kb3 13:30 Follow up: Response: No adverse reaction; Pain is decreased kb3 13:00 Drug: Zofran (Ondansetron) 4 mg Route: IVP; Site: left antecubital; kb3 14:00 Follow up: Response: No adverse reaction; Nausea is decreased kb3 Medication: 11:08 VIS not applicable for this client. ss Outcome: 15:05 Discharge ordered by . en 15:20 Discharged to home ambulatory, with family. kb3 15:20 Condition: stable 15:20 Discharge instructions given to patient, Instructed on discharge instructions, follow up and referral plans. medication usage, Demonstrated understanding of instructions, follow-up care, medications, Prescriptions given X 1. 15:40 Patient left the ED. kb3 Signatures: Dispatcher [employer] EDMS Eliazar Menard MD MD rn Smirch, Shelby, Diana Rodríguez RN rg4 Birdie Cody PA PA en Reid, Kelley RN RN kr3 April Amador RN RN kb3
[2022-04-01 15:44] VITALS: TEMP 99.1
[2022-04-01 15:47] VITALS: BP 98/64; O2SAT 100
== END 2022-04-01 15:40 | disposition home or self-care (01) ==
LOC: ER 10:13
DX: O02.1 Missed abortion (principal)
CPT/HCPCS: 36415; 74177; 76830; 80053; 81003; 84702; 85025; 86901; 96374; 96375; 99284; J2405; Q9967

== ENCOUNTER 2023-12-07 10:48 | Emergency (ER) | payer BC ==
[2023-12-07] MEDS ORDERED: ONDANSETRON 4 MG/2 ML VIAL ONE (11:25)
[2023-12-07] MEDS ORDERED: KETOROLAC 30 MG/ML INJ ONE (11:25)
[2023-12-07] MEDS ORDERED: NA CHLORIDE 0.9% 1,000 ML ONE (11:26)
[2023-12-07 11:44] LABS: Absolute Eosinophils 0.3 K/uL (0-0.5); Absolute Monocytes 0.7 K/uL (0.1-1.3); Absolute Neutrophil 4.7 K/uL (1.8-8.0); Basophils % 0.7 % (0-1.3); Eosinophils % 3.9 % (0-4.4); Hematocrit 39.5 % (36.0-45.0); Lymphocytes % 14.7 % (15.3-44.8); MCH 27.5 pg (27.0-35.0); MCHC 32.8 g/dL (32.0-36.0); MCV 83.7 fL (80-100); MPV 10.5 fL (7.6-11.3); Monocytes % 10.3 % (3.3-12.3); Neutrophils % 70.4 % (41.7-73.7); Platelets 202 thou/uL (152-406); RBC Red Blood Cell Count 4.72 M/uL (3.86-4.86); Red Cell Distribution Width 13.6 % (12.1-15.2)
[2023-12-07 11:48] LABS: Specific Gravity > 1.030 (1.005-1.030); Sqamous Epithelial <5 /HPF (None Seen); Urine Bacteria None Seen /HPF (<20); Urine Bilirubin NEGATIVE (Negative); Urine Blood Negative (Negative); Urine Clarity Turbid (Clear); Urine Color Yellow (Yellow); Urine Glucose NEGATIVE (Negative); Urine Ketones 2+ (Negative); Urine Microscopic Reflex YN ORDER UMIC; Urine Mucus 4+ /HPF (None Seen); Urine Nitrite NEGATIVE (Negative); Urine Protein TRACE (Negative); Urine RBC <5 /HPF (None Seen); Urine Urobilinogen Normal (Normal); Urine WBC <5 /HPF (<5)
[2023-12-07 12:00] LABS: Albumin 4.7 g/dL (3.4-5.0); Albumin/Globulin Ratio 1.2 (1.1-1.8); Anion Gap 11.4 mEq/L (5.0-15.0); Bilirubin Total 0.7 mg/dL (0.2-1.0); Globulin 3.8 g/dL (2.3-3.5); Potassium 3.4 mEq/L (3.5-5.1); Protein, Total 8.5 g/dL (6.4-8.2)
--- NOTE | 2023-12-07 12:51 | RAD REPORT ---
EXAM DESCRIPTION: CT - Abdomen Pelvis W Contrast - 12/07/2023 12:36 pm CLINICAL HISTORY: lower abdomen pain COMPARISON: Abdomen Pelvis W Contrast dated 04/01/2022 TECHNIQUE: Thin cut axial CT imaging of the abdomen and pelvis was performed following intravenous a dministration of 100 mL Isovue 300. Multiplanar reformats were generated and reviewed. All CT scans are performed using dose optimization technique as appropriate and may include automated exposure control or mA/KV adjustment according to patient size. FINDINGS: No suspicious findings in the lung bases. The liver, spleen, adrenal glands, and pancreas show no suspicious findings. Gallbladder and biliary tree are also without suspicious finding. Symmetric renal function is seen with no hydronephrosis or suspicious renal mass. No dilated bowel loops or bowel wall thickening. No free air, fluid collections, or inflammatory stra nding. Trace free fluid in the cul-de-sac, favored to be physiologic. Appendix is unremarkable. Colla psed marginally enhancing 1.9 cm right ovarian cystic structure, suggesting a recently ruptured folli brooke. No hernia, mass or bulky lymphadenopathy. The urinary bladder is without significant finding. No suspicious bony findings. IMPRESSION: No acute intra-abdominal process. Incidental findings as above.
--- NOTE | 2023-12-07 14:02 | EDPHYS ---
Physician Documentation [facility] Name: Katrin Mccauley Age: 28 yrs Sex: Female : 1995 Arrival Date: 12/07/2023 Time: 10:48 Bed 6 Private MD: RHEA Physician Simon Galdamez HPI: 12/06 11:15 This 28 yrs old Female presents to ER via Ambulatory with complaints of Abdominal Pain. cp 11:15 The patient presents with abdominal pain in the lower abdomen. Onset: The cp symptoms/episode began/occurred last night, and became worse today. 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 - Infectious Disease History:: Denies. - Social history:: Smoking status: Patient denies any tobacco usage or history of. ROS: 11:20 Constitutional: Negative for body aches, chills, fever, poor PO intake, cp 11:20 Eyes: Negative for injury, pain, redness, and discharge, cp 11:20 ENT: Negative for drainage from ear(s), ear pain, sore throat, difficulty swallowing, difficulty handling secretions, 11:20 Cardiovascular: Negative for chest pain, 11:20 Respiratory: Negative for cough, shortness of breath, wheezing, 11:20 Abdomen/GI: Positive for abdominal pain, nausea, of the right lower quadrant and left lower quadrant, Negative for diarrhea, constipation, 11:20 Back: Negative for injury or acute deformity, pain at rest, pain with movement, 11:20 : Negative for urinary symptoms, vaginal bleeding, vaginal discharge, 11:20 Neuro: Negative for altered mental status, headache, weakness, 11:20 All other systems are negative, Exam: 11:25 Constitutional: The patient appears in no acute distress, alert, non-toxic, well cp developed, well nourished, in obvious pain, uncomfortable, 11:25 Head/Face: Normocephalic, atraumatic. cp 11:25 Eyes: Periorbital structures: appear normal, Conjunctiva: normal, no exudate, no injection, Sclera: no appreciated abnormality, Lids and lashes: appear normal, bilaterally, 11:25 ENT: External ear(s): are unremarkable, Nose: is normal, Mouth: Lips: moist, Oral mucosa: moist, Posterior pharynx: Airway: no evidence of obstruction, patent, 11:25 Chest/axilla: Inspection: normal, :25 Cardiovascular: Rate: normal, Rhythm: regular, :25 Respiratory: the patient does not display signs of respiratory distress, Respirations: normal, no retractions, labored breathing, is not present, Breath sounds: are clear throughout, no decreased breath sounds, no stridor, no wheezing, :25 Abdomen/GI: Inspection: abdomen appears normal, Bowel sounds: active, all quadrants, Palpation: soft, in all quadrants, moderate abdominal tenderness, in the right lower quadrant and left lower quadrant, rebound tenderness, is not appreciated, involuntary guarding, is not appreciated, :25 Back: CVA tenderness, is absent, Vital Signs: 10:58 BP 122 / 76; Pulse 74; Resp 18; Temp 97.3; Pulse Ox 100% ; Weight 52.16 kg; Height 5 ll1 ft. 0 in. ; Pain 8/10; 11:30 BP 98 / 74; Pulse 82; Resp 18; Pulse Ox 100% on R/A; Weight 52.16 kg; Height 5 ft. 0 ar6 in. ; Pain 6/10; 11:40 BP 97 / 74; Pulse 61; Temp 97.8; Pulse Ox 100% on R/A; Weight 52.16 kg; cc6 13:33 BP 105 / 72; Pulse 78; Resp 18; Pulse Ox 100% on R/A; ar6 14:48 BP 106 / 62; Pulse 70; Resp 18; Pulse Ox 100% on R/A; ar6 11:30 Body Mass Index 22.46 (52.16 kg, 152.4 cm) ar6 10:58 Pain Scale: Adult ll1 11:30 Pain Scale: Adult ar6 MDM: 10:54 Patient medically screened. cp 14:01 Data reviewed: vital signs, nurses notes, lab test result(s), radiologic studies, CT cp scan, and as a result, I will discharge patient. 14:01 Differential diagnosis: appendicitis, Ectopic , non-specific abd pain, Ovarian cp Torsion, Pelvic Inflammatory Disease, Pyelonephritis, Tubal Ovarian Abcess, Ureterolithiasis, urinary tract infection. I considered the following discharge prescriptions or medication management in the emergency department Medications were administered in the Emergency Department. See MAR. Counseling: I had a detailed discussion with the patient and/or guardian regarding the historical points, exam findings, and any diagnostic results supporting the discharge/admit diagnosis, lab results, radiology results, to return to the emergency department if symptoms worsen or persist or if there are any questions or concerns that arise at home. Response to treatment: the patient's symptoms have markedly improved after treatment, and as a result, I will discharge patient. Special discussion: Based on the patient's Hx, exam, and Dx evaluation, there is no indication for emergent surgery or inpatient Tx. It is understood by the patient/guardian that if the Sx's persist or worsen they need to return immediately for re-evaluation. 12/06 11:12 Order name: CBC with Diff; Complete Time: 13:23 12/06 13:23 Interpretation: Normal except: LYM% 14.7. 12/06 11:12 Order name: CMP; Complete Time: 13:23 12/06 13:23 Interpretation: Normal except: K 3.4; TP 8.5; GLOB 3.8. 12/06 11:12 Order name: Lipase; Complete Time: 13:23 12/06 11:12 Order name: Test, Urine; Complete Time: 13:23 12/06 11:12 Order name: Urinalysis w/ reflexes; Complete Time: 13:23 12/06 13:23 Interpretation: Normal except: UCLA Turbid; Urine SG > 1.030; UKET 2+; UPROT TRACE; cp UESTR 25; MUCUS 4+. 12/06 11:12 Order name: CT Abd/Pelvis - IV Contrast Only; Complete Time: 13:23 12/06 13:24 Interpretation: Report reviewed. 12/06 11:12 Order name: IV Saline Lock; Complete Time: 11:38 12/06 11:12 Order name: Labs collected and sent; Complete Time: 11:38 cp Administered Medications: 11:39 Drug: NS 0.9% IV 1000 ml IV at 1 bolus Per protocol; 1000 mL bolus Route: IV; Rate: 1 ar6 bolus; Site: right antecubital; 14:44 Follow up: IV Status: Completed infusion; IV Intake: 1000ml ar6 11:39 Drug: Ondansetron IVP 4 mg IVP once; over 2 minutes Route: IVP; Site: right antecubital;ar6 14:44 Follow up: Response: No adverse reaction ar6 12:38 Drug: TORadol - Ketorolac IVP 15 mg IVP once Route: IVP; Site: right antecubital; ar6 14:44 Follow up: Response: No adverse reaction ar6 14:20 Drug: Potassium PO Effervescent Tablet 25 mEq PO once; dissolve in 4 ounces of water or ar6 juice Route: PO; 14:48 Follow up: Response: No adverse reaction ar6 Disposition Summary: 12/07/23 14:02 Discharge Ordered Notes: Location: Home cp Problem: new cp Symptoms: have improved cp Condition: Stable cp Diagnosis - Lower abdominal pain, unspecified cp Followup: cp - With: Private Physician - When: 2 - 3 days - Reason: Worsening of condition Discharge Instructions: - Discharge Summary Sheet cp - Abdominal Pain, Adult cp Forms: - Medication Reconciliation Form cp - Antibiotic Education cp - Prescription Opioid Use cp - Patient Portal Instructions cp - Leadership Thank You Letter cp Prescriptions: - Ibuprofen 600 mg Oral tablet - take 1 tablet ORAL route every 8 hours As needed take with food; 30 tablet; cp Refills: 0, Product Selection Permitted Addendum: 12/14/2023 15:39 Co-signature as Attending Physician, Simon Galdamez MD I agree with the assessment and c last plan of care. Signatures: Dispatcher [employer] Simon Ramos MD MD cha Page, Corey, PA PA cp Diego Peters RN RN ll1 Radha Pantoja RN RN ar6 Corrections: (The following items were deleted from the chart) 12/06 10:58 10:58 PMHx: Anemia; ll1 ll1 11:13 11:13 CBC+H.LAB.BRZ ordered. EDMS EDMS 11:13 11:13 COMPREHENSIVE METABOLIC PANEL+C.LAB.BRZ ordered. EDMS EDMS 11:13 11:13 LIPASE+C.LAB.BRZ ordered. EDMS EDMS 11:13 11:13 Test, Urine+UC.LAB.BRZ ordered. EDMS EDMS 11:13 11:13 Urinalysis+U.LAB.BRZ ordered. EDMS EDMS 12/07 09:55 12/06 11:25 Constitutional: The patient appears in no acute distress, alert, cp cp
--- NOTE | 2023-12-07 14:02 | ER ---
Nurse's Notes [facility] Name: Katrin Mccauley Age: 28 yrs Sex: Female : 1995 Arrival Date: 12/07/2023 Time: 10:48 Bed 6 Private MD: Diagnosis: Lower abdominal pain, unspecified Presentation: 12/06 10:58 Chief complaint: Patient states: Lower abdominal pain began this AM. Coronavirus ll1 screen: Client denies travel out of the [place] in the last 14 days. At this time, the client does not indicate any symptoms associated with coronavirus-19. Ebola Screen: Patient denies travel to an Ebola-affected area in the 21 days before illness onset. Initial Sepsis Screen: Does the patient meet any 2 criteria? No. Patient's initial sepsis screen is negative. Does the patient have a suspected source of infection? No. Patient's initial sepsis screen is negative. Risk Assessment: Do you want to hurt yourself or someone else? Patient reports no desire to harm self or others. Onset of symptoms was December 07, 2023. 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 - Infectious Disease History:: Denies. - Social history:: Smoking status: Patient denies any tobacco usage or history of. Screenin:30 [facility] ED Fall Risk Assessment (Adult) History of falling in the last 3 months, ar6 including since admission No falls in past 3 months (0 pts) Confusion or Disorientation No (0 pts) Intoxicated or Sedated No (0 pts) Impaired Gait Yes (1 pt) Mobility Assist Device Used No (0 pt) Altered Elimination No (0 pt) Score/Fall Risk Level 0 - 2 = Low Risk Oriented to surroundings, Maintained a safe environment, Educated pt \T\ family on fall prevention, incl call for assistance when getting out of bed, Hourly rounding (assess needs \T\ fall precautionary measures) done. Abuse screen: Denies threats or abuse. Denies injuries from another. Nutritional screening: No deficits noted. Tuberculosis screening: No symptoms or risk factors identified. Assessment: 11:30 General: Appears in no apparent distress. uncomfortable, Behavior is calm, cooperative, ar6 appropriate for age. Pain: Complains of pain in abdomen Pain currently is 6 out of 10 on a pain scale. Pain began suddenly, pt. reports pain began this morning. Neuro: Level of Consciousness is awake, alert, obeys commands, Oriented to person, place, time, situation. Cardiovascular: Capillary refill < 3 seconds. Respiratory: Airway is patent. GI: Abdomen is flat, non-distended, Bowel sounds present X 4 quads. Abd is soft X 4 quads Abdomen is tender to palpation in right lower quadrant and left lower quadrant. : Urine is cloudy. EENT: Oral mucosa is moist. Derm: Skin is intact, is healthy with good turgor, Skin is dry, Skin is normal. Musculoskeletal: No signs and/or symptoms reported regarding the musculoskeletal system. Vital Signs: 10:58 BP 122 / 76; Pulse 74; Resp 18; Temp 97.3; Pulse Ox 100% ; Weight 52.16 kg; Height 5 ll1 ft. 0 in. ; Pain 8/10; 11:30 BP 98 / 74; Pulse 82; Resp 18; Pulse Ox 100% on R/A; Weight 52.16 kg; Height 5 ft. 0 ar6 in. ; Pain 6/10; 11:40 BP 97 / 74; Pulse 61; Temp 97.8; Pulse Ox 100% on R/A; Weight 52.16 kg; cc6 13:33 BP 105 / 72; Pulse 78; Resp 18; Pulse Ox 100% on R/A; ar6 14:48 BP 106 / 62; Pulse 70; Resp 18; Pulse Ox 100% on R/A; ar6 11:30 Body Mass Index 22.46 (52.16 kg, 152.4 cm) ar6 10:58 Pain Scale: Adult ll1 11:30 Pain Scale: Adult ar6 ED Course: 10:50 Patient arrived in ED. mr 10:51 Simon Subramanian PA is PHCP. cp 10:51 Simon Galdamez MD is Attending Physician. cp 10:57 Arm band placed on Patient placed in an exam room, on a stretcher. ll1 10:59 Triage completed. ll1 11:08 Hancock, Erendira, RN is Primary Nurse. ph 11:30 No apparent distress. Awaiting lab results, Awaiting radiology results. ar6 11:30 Patient has correct armband on for positive identification. Bed in low position. Call ar6 light in reach. Side rails up X 1. Provided Education on: medications and call light. Pulse ox on. NIBP on. Door closed. Noise minimized. Lights dimmed. Moved to private room. Warm blanket given. Head of bed lowered. 11:30 No provider procedures requiring assistance completed. IV is patent, is intact. ar6 11:36 Initial lab(s) drawn, by me, sent to lab. Inserted saline lock: 20 gauge in left cc6 antecubital area, using aseptic technique. Blood collected. Flushed with 10 mL NS. 11:38 CBC with Diff Sent. ar6 11:38 CMP Sent. ar6 11:38 Lipase Sent. ar6 11:39 Test, Urine Sent. ar6 11:39 Urinalysis w/ reflexes Sent. ar6 12:38 CT Abd/Pelvis - IV Contrast Only In Process Unspecified. EDMS 14:47 IV discontinued, intact, bleeding controlled, No redness/swelling at site. Pressure ar6 dressing applied. Administered Medications: 11:39 Drug: NS 0.9% IV 1000 ml IV at 1 bolus Per protocol; 1000 mL bolus Route: IV; Rate: 1 ar6 bolus; Site: right antecubital; 14:44 Follow up: IV Status: Completed infusion; IV Intake: 1000ml ar6 11:39 Drug: Ondansetron IVP 4 mg IVP once; over 2 minutes Route: IVP; Site: right antecubital;ar6 14:44 Follow up: Response: No adverse reaction ar6 12:38 Drug: TORadol - Ketorolac IVP 15 mg IVP once Route: IVP; Site: right antecubital; ar6 14:44 Follow up: Response: No adverse reaction ar6 14:20 Drug: Potassium PO Effervescent Tablet 25 mEq PO once; dissolve in 4 ounces of water or ar6 juice Route: PO; 14:48 Follow up: Response: No adverse reaction ar6 Medication: 11:30 VIS not applicable for this client. ar6 Intake: 14:44 IV: 1000ml; Total: 1000ml. ar6 Outcome: 14:02 Discharge ordered by . jillian 14:47 Discharged to home ambulatory, ar6 14:47 Condition: good 14:47 Discharge instructions given to patient, Instructed on discharge instructions, follow up and referral plans. medication usage, Demonstrated understanding of instructions, follow-up care, medications, Prescriptions given X 1, 14:48 Patient left the ED. ar6 Signatures: Dispatcher [employer] EDMS Anisha Blanchard, Reg Reg mr Erendira Hancock RN RN ph Simon Subramanian PA PA Diego Lemus RN RN ll1 Radha Pantoja RN RN ar6 Eneida Gardner cc6 Corrections: (The following items were deleted from the chart) 10:58 10:58 PMHx: Anemia; ll1 ll1
[2023-12-07] MEDS ORDERED: POTASSIUM 25 MEQ EFFERV TAB ONE (14:45)
[2023-12-07 15:02] VITALS: O2SAT 100
[2023-12-07 15:14] VITALS: TEMP 97.8
[2023-12-07 15:16] VITALS: BP 106/62
== END 2023-12-07 14:48 | disposition home or self-care (01) ==
LOC: ER 10:48
DX: R10.32 Left lower quadrant pain (principal); R10.31 Right lower quadrant pain
CPT/HCPCS: 96361; 85025; 81001; 36415; 81025; 83690; 80053; 74177; 96375; 96374; 99284; Q9967; J2405; J7030